=== PATIENT | male | born 1955 | race Caucasian/White ===

== ENCOUNTER 2016-12-25 10:08 | Outpatient (CLI) | payer OTHER ==
--- NOTE | 2016-12-25 14:28 | DIAGNOSTIC IMAGING REPORT ---
REFERRING PHYSICIAN/PROVIDER: Arben Art MD CONSULTING CHILD CAREGIVER PRIVATE HOME: Reynaldo Gleason MD PROCEDURE: 2D echo, M-mode and complete color and flow Doppler interrogation TECHNICAL QUALITY: Good INDICATION: SYSTOLIC INTERPRETATIONS: CHAMBERS: LEFT ATRIUM: Normal left atrial size. LEFT VENTRICLE: Normal left ventricular size and systolic function, EF visually estimated to be 55-60%. No wall motion abnormalities. Normal diastolic function. RIGHT ATRIUM: Normal right atrial size. RIGHT VENTRICLE: Normal right ventricular size and systolic function. VALVES: All valves nonrheumatic unless otherwise indicated. AORTIC VALVE: Individual aortic valve leaflets not clearly seen. Aortic sclerosis without stenosis. Trace aortic regurgitation. MITRAL VALVE: No mitral regurgitation. No mitral stenosis. TRICUSPID VALVE: Trace tricuspid regurgitation. Unable to estimate pulmonary artery systolic pressure due to inadequate tricuspid regurgitation jet. PULMONIC VALVE: Trace pulmonic regurgitation. No pulmonic stenosis. MISCELLANEOUS: No pericardial effusion. HEMODYNAMICS: Normal IVC size and >50% collapse with inspiration. CVP is estimated to be 3 mmHg. IMPRESSION: 1. Normal left ventricular size and systolic function, EF visually estimated to be 55-60%. No wall motion abnormalities. 2. Normal diastolic function. 3. Aortic sclerosis without stenosis. 4. Trace aortic regurgitation. 5. Normal right ventricular size and systolic function. 6. Unable to estimate pulmonary artery systolic pressure due to inadequate tricuspid regurgitation.
== END 2016-12-25 23:00 | disposition home or self-care (01) ==
LOC: US SRH 10:08
DX: I50.20 Unspecified systolic (congestive) heart failure (principal)

== ENCOUNTER 2017-01-19 10:17 | Outpatient (CLI) | payer OTHER ==
--- NOTE | 2017-01-19 12:37 | DIAGNOSTIC IMAGING REPORT ---
PROCEDURE: US NONVASCULAR EXTREMITY-RIGHT INDICATION: RT BICEP PAIN R/O TEAR TECHNIQUE: Lacy scale and color Doppler sonographic images of the right biceps muscle and left for comparison were obtained COMPARISON: None. FINDINGS: Sonographically normal muscle tissue. No suspicious cyst, solid mass, hypervascularity, or abnormal shadowing. IMPRESSION: 1. No radiologic evidence of significant muscle or myotendinous discontinuity, however biceps tendon avulsion distally is not excluded. 2. MRI of the right biceps (focusing on the tendon insertion near the elbow) is recommended.
== END 2017-01-19 23:00 ==
LOC: US SRH 10:17
DX: M79.603 Pain in arm, unspecified (principal)